=== PATIENT | female | born 1955 | race Caucasian/White ===

== ENCOUNTER → 2023-08-13 10:00 | Outpatient (REF) | payer BC, SELFPAY | LOC: CLAB 10:00 | PROVIDERS: ATTENDING PHYSICIAN Surgery | DX: N63.20 Unspecified lump in the left breast, unspecified quadrant (principal) | CPT/HCPCS: 88307; 88312 ==

== ENCOUNTER → 2023-09-06 13:24 | Outpatient (REF) | payer BC, SELFPAY ==
[2023-09-06 14:10] LABS: % Basophils 0.3 % (0-2); % Eosinophils 0.9 % (0-6); % Immature Granulocytes 0.3 % (0-0.5); % Lymphocytes 19.5 % (20.5-51.1); % Monocytes 10.5 % (1.7-9.3); % Neutrophils 68.5 % (42.2-75.2); Absolute Eosinophils 0.1 10^3/uL (0-0.7); Absolute Lymphocytes 2.3 10^3/uL (1.2-3.4); Absolute Monocytes 1.3 10^3/uL (0.1-0.6); Absolute Neutrophils 8.2 10^3/uL (1.4-6.5); Hematocrit 41.1 % (37.0-47.0); Hemoglobin 14.1 g/dL (12.0-16.0); Mean Corp Hgb Conc. 34.3 g/dL (33.0-37.0); Mean Corpuscular Hgb 32.6 pg (27.0-31.0); Mean Corpuscular Volume 94.9 fL (81.0-99.0); Mean Platelet Volume 9.7 fL (7.4-10.4); Nucleated Red Blood Cells % 0 %; Platelet Count 212 10^3/uL (130-400); Red Blood Cell Count 4.33 10^6/uL (4.20-5.40); Red Cell Dist. Width 12.4 % (11.5-14.5)
[2023-09-06 14:24] LABS: ALT (SGPT) 26 U/L (0-35); AST (SGOT) 22 U/L (14-36); Alkaline Phosphatase 90 U/L (38-126); Blood Urea Nitrogen 19 mg/dl (7-17); Calcium 8.8 mg/dl (8.4-10.2); Carbon Dioxide 29 mmol/L (22-30); Chloride 101 mmol/L (98-107); Glucose 126 mg/dl (70-99); Potassium 3.8 mmol/L (3.5-5.1); Sodium 135 mmol/L (135-145); Total Bilirubin 0.7 mg/dl (0.2-1.3); Total Protein 6.9 g/dl (6.3-8.2); eGFR > 60.00
== END ==
LOC: REG 13:24
PROVIDERS: ATTENDING PHYSICIAN Nurse Practitioner Primary Care; FAMILY PHYSICIAN Nurse Practitioner Family
DX: Z79.899 Other long term (current) drug therapy (principal)
CPT/HCPCS: 36415; 80053; 85025

== ENCOUNTER → 2023-09-10 09:15 | Outpatient (REF) | payer BC, SELFPAY | LOC: HWRAD 09:15 | PROVIDERS: ATTENDING PHYSICIAN Nurse Practitioner Family | DX: R05.9 Cough, unspecified (principal) | CPT/HCPCS: 71046 ==

== ENCOUNTER → 2023-11-05 08:07 | Outpatient (REF) | payer BC, SELFPAY ==
[2023-11-05 12:34] LABS: Glucose 124 mg/dl (70-99)
[2023-11-05 12:35] LABS: Blood Urea Nitrogen 17 mg/dl (7-17); Calcium 9.4 mg/dl (8.4-10.2); Carbon Dioxide 27 mmol/L (22-30); Chloride 104 mmol/L (98-107); Potassium 4.6 mmol/L (3.5-5.1); Sodium 136 mmol/L (135-145); eGFR > 60.00
== END ==
LOC: HWLAB 08:07
PROVIDERS: ATTENDING PHYSICIAN Internal Medicine Cardiovascular Disease; FAMILY PHYSICIAN Nurse Practitioner Family
DX: I10 Essential (primary) hypertension (principal); I35.1 Nonrheumatic aortic (valve) insufficiency
CPT/HCPCS: 36415; 80048

== ENCOUNTER → 2023-11-13 12:39 | Outpatient (REF) | payer BC, SELFPAY | LOC: CLAB 12:39 | PROVIDERS: ATTENDING PHYSICIAN Dermatology | DX: D48.5 Neoplasm of uncertain behavior of skin (principal) | CPT/HCPCS: 88305 ==

== ENCOUNTER → 2024-02-12 07:04 | Outpatient (REF) | payer BC, SELFPAY ==
[2024-02-12 08:24] LABS: % Basophils 0.5 % (0-2); % Eosinophils 1.7 % (0-6); % Immature Granulocytes 0.5 % (0-0.5); % Lymphocytes 25.1 % (20.5-51.1); % Monocytes 6.8 % (1.7-9.3); % Neutrophils 65.4 % (42.2-75.2); Absolute Eosinophils 0.1 10^3/uL (0-0.7); Absolute Lymphocytes 1.5 10^3/uL (1.2-3.4); Absolute Monocytes 0.4 10^3/uL (0.1-0.6); Absolute Neutrophils 3.9 10^3/uL (1.4-6.5); Hemoglobin 13.5 g/dL (12.0-16.0); Mean Corp Hgb Conc. 34.6 g/dL (33.0-37.0); Mean Corpuscular Hgb 32.4 pg (27.0-31.0); Mean Corpuscular Volume 93.5 fL (81.0-99.0); Nucleated Red Blood Cells % 0 %; Platelet Count 227 10^3/uL (130-400); Red Blood Cell Count 4.17 10^6/uL (4.20-5.40); Red Cell Dist. Width 12.2 % (11.5-14.5)
[2024-02-12 08:43] LABS: ALT (SGPT) 29 U/L (0-35); AST (SGOT) 27 U/L (14-36); Albumin 4.3 g/dl (3.5-5.0); Alkaline Phosphatase 86 U/L (38-126); Blood Urea Nitrogen 17 mg/dl (7-17); Calcium 9.3 mg/dl (8.4-10.2); Carbon Dioxide 27 mmol/L (22-30); Chloride 104 mmol/L (98-107); Glucose 121 mg/dl (70-99); HDL Cholesterol 37 mg/dl; LDL Cholesterol, Calculated 165 mg/dl; Potassium 4.5 mmol/L (3.5-5.1); Sodium 138 mmol/L (135-145); Total Bilirubin 0.6 mg/dl (0.2-1.3); Total Cholesterol 240 mg/dl (50-199); Total Protein 6.8 g/dl (6.3-8.2); Triglyceride 191 mg/dl (10-149); Very Low Density Lipoprotein 38 mg/dl (0-30); eGFR > 60.00
[2024-02-12 09:00] LABS: Glycohemoglobin (HgbA1c) 6.2 % (4.0-5.6)
[2024-02-12 09:02] LABS: Vitamin D, 25-OH*** 30.6 ng/mL (30-80)
[2024-02-12 09:16] LABS: TSH Reflex To Free T4 1.54 uIU/ml (0.47-4.68)
[2024-02-12 09:55] LABS: Vitamin B12 275 pg/ml (239-931)
== END ==
LOC: REG 07:04
PROVIDERS: ATTENDING PHYSICIAN Nurse Practitioner Family
DX: E53.8 Deficiency of other specified B group vitamins (principal); I10 Essential (primary) hypertension; E55.9 Vitamin D deficiency, unspecified; R73.03 Prediabetes; E78.5 Hyperlipidemia, unspecified; Z00.00 Encounter for general adult medical examination without abnormal findings
CPT/HCPCS: 36415; 80053; 80061; 82306; 82607; 83036; 84443; 85025

== ENCOUNTER → 2024-04-10 14:39 | Outpatient (REF) | payer BC, SELFPAY | LOC: RAD 14:39 | PROVIDERS: ATTENDING PHYSICIAN Nurse Practitioner Family | DX: M79.604 Pain in right leg (principal); M79.605 Pain in left leg | CPT/HCPCS: 93922; 93925 ==

== ENCOUNTER → 2024-05-19 07:00 | Outpatient (REF) | payer BC, SELFPAY | LOC: WDC 07:00 | PROVIDERS: ATTENDING PHYSICIAN Nurse Practitioner Family | DX: Z12.31 Encounter for screening mammogram for malignant neoplasm of breast (principal) | CPT/HCPCS: 77063; 77067 ==

== ENCOUNTER → 2024-05-25 07:32 | Outpatient (REF) | payer BC, SELFPAY | LOC: RAD 07:32 | PROVIDERS: ATTENDING PHYSICIAN Nurse Practitioner Family | DX: M85.80 Other specified disorders of bone density and structure, unspecified site (principal) | CPT/HCPCS: 77080 ==

== ENCOUNTER → 2024-05-27 09:10 | Outpatient (REF) | payer BC, SELFPAY | LOC: WDC 09:10 | PROVIDERS: ATTENDING PHYSICIAN Nurse Practitioner Family | DX: R92.8 Other abnormal and inconclusive findings on diagnostic imaging of breast (principal) | CPT/HCPCS: 76642 ==

== ENCOUNTER → 2024-06-29 06:27 | Outpatient (REF) | payer BC, SELFPAY ==
[2024-06-29 09:36] LABS: % Basophils 0.6 % (0-2); % Immature Granulocytes 0.6 % (0-0.5); % Lymphocytes 21.6 % (20.5-51.1); % Neutrophils 67.2 % (42.2-75.2); Absolute Eosinophils 0.1 10^3/uL (0-0.7); Absolute Lymphocytes 1.4 10^3/uL (1.2-3.4); Absolute Monocytes 0.5 10^3/uL (0.1-0.6); Absolute Neutrophils 4.5 10^3/uL (1.4-6.5); Hematocrit 41.8 % (37.0-47.0); Hemoglobin 13.9 g/dL (12.0-16.0); Mean Corp Hgb Conc. 33.3 g/dL (33.0-37.0); Mean Corpuscular Hgb 32.6 pg (27.0-31.0); Mean Corpuscular Volume 98.1 fL (81.0-99.0); Mean Platelet Volume 10.2 fL (7.4-10.4); Nucleated Red Blood Cells % 0 %; Platelet Count 208 10^3/uL (130-400); Red Blood Cell Count 4.26 10^6/uL (4.20-5.40); Red Cell Dist. Width 12.2 % (11.5-14.5); White Blood Cell Count 6.7 10^3/uL (4.8-10.8)
[2024-06-29 09:53] LABS: ALT (SGPT) 29 U/L (0-35); AST (SGOT) 26 U/L (14-36); Albumin 4.1 g/dl (3.5-5.0); Alkaline Phosphatase 82 U/L (38-126); Blood Urea Nitrogen 15 mg/dl (7-17); Calcium 8.8 mg/dl (8.4-10.2); Carbon Dioxide 28 mmol/L (22-30); Chloride 104 mmol/L (98-107); Glucose 135 mg/dl (70-99); Potassium 4.1 mmol/L (3.5-5.1); Sodium 140 mmol/L (135-145); Total Bilirubin 0.3 mg/dl (0.2-1.3); Total Protein 6.6 g/dl (6.3-8.2); eGFR > 60.00
[2024-06-29 10:21] LABS: TSH Reflex To Free T4 1.77 uIU/ml (0.47-4.68)
[2024-06-29 10:31] LABS: Vitamin D, 25-OH*** 16.5 ng/mL (30-80)
[2024-06-29 10:40] LABS: Vitamin B12 286 pg/ml (239-931)
[2024-06-29 11:08] LABS: Glycohemoglobin (HgbA1c) 6.1 % (4.0-5.6)
== END ==
LOC: HWLAB 06:27
PROVIDERS: ATTENDING PHYSICIAN Nurse Practitioner Family
DX: E53.8 Deficiency of other specified B group vitamins (principal); E55.9 Vitamin D deficiency, unspecified; I10 Essential (primary) hypertension; R73.03 Prediabetes
CPT/HCPCS: 36415; 80053; 82306; 82607; 83036; 84443; 85025

== ENCOUNTER → 2024-08-10 11:23 | Outpatient (REF) | payer BC, SELFPAY ==
[2024-08-10 15:27] LABS: Lipase 29 U/L (23-300)
[2024-08-10 16:14] LABS: Vitamin B12 413 pg/ml (239-931)
== END ==
LOC: HWLAB 11:23
PROVIDERS: ATTENDING PHYSICIAN Specialist; FAMILY PHYSICIAN Nurse Practitioner Family
DX: R43.2 Parageusia (principal); K21.9 Gastro-esophageal reflux disease without esophagitis; R09.82 Postnasal drip
CPT/HCPCS: 36415; 82607; 83516; 83690; 83735; 84630; 86340

== ENCOUNTER → 2024-08-12 09:00 | Outpatient (REF) | payer BC, SELFPAY | LOC: CLAB 09:00 | PROVIDERS: Pathology Anatomic Pathology & Clinical Pathology; ATTENDING PHYSICIAN Nurse Practitioner Primary Care; FAMILY PHYSICIAN Nurse Practitioner Family | DX: L30.8 Other specified dermatitis (principal) | CPT/HCPCS: 87070; 87205; 88305 ==

== ENCOUNTER → 2024-09-01 07:26 | Outpatient (REF) | payer BC, SELFPAY | LOC: WDC 07:26 | PROVIDERS: ATTENDING PHYSICIAN Nurse Practitioner Family | DX: R92.8 Other abnormal and inconclusive findings on diagnostic imaging of breast (principal) | CPT/HCPCS: 76642 ==

== ENCOUNTER → 2024-09-28 08:12 | Outpatient (REF) | payer BC, SELFPAY | LOC: RCS 08:12 | PROVIDERS: ATTENDING PHYSICIAN Internal Medicine Cardiovascular Disease; FAMILY PHYSICIAN Nurse Practitioner Family | DX: I10 Essential (primary) hypertension (principal); I87.2 Venous insufficiency (chronic) (peripheral) | CPT/HCPCS: 93017; 93350 ==

== ENCOUNTER → 2024-11-27 15:15 | Outpatient (REF) | payer BC, SELFPAY ==
[2024-11-27 17:09] LABS: Vitamin B12 385 pg/ml (239-931)
== END ==
LOC: REG 15:15
PROVIDERS: ATTENDING PHYSICIAN Specialist; FAMILY PHYSICIAN Nurse Practitioner Family
DX: E53.8 Deficiency of other specified B group vitamins (principal)
CPT/HCPCS: 36415; 82607

== ENCOUNTER → 2024-12-19 09:50 | Outpatient (REF) | payer BC, SELFPAY ==
[2024-12-19 12:20] LABS: ALT (SGPT) 23 U/L (0-35); AST (SGOT) 21 U/L (14-36); Albumin 4.2 g/dl (3.5-5.0); Alkaline Phosphatase 68 U/L (38-126); Blood Urea Nitrogen 14 mg/dl (7-17); Calcium 9.1 mg/dl (8.4-10.2); Carbon Dioxide 28 mmol/L (22-30); Chloride 106 mmol/L (98-107); Glucose 131 mg/dl (70-99); Sodium 141 mmol/L (135-145); Total Bilirubin 0.6 mg/dl (0.2-1.3); Total Protein 6.7 g/dl (6.3-8.2); eGFR > 60.00
== END ==
LOC: REG 09:50
PROVIDERS: ATTENDING PHYSICIAN Nurse Practitioner Family
DX: I10 Essential (primary) hypertension (principal); R73.03 Prediabetes; E78.2 Mixed hyperlipidemia; K76.0 Fatty (change of) liver, not elsewhere classified; Z68.30 Body mass index [BMI] 30.0-30.9, adult; G50.0 Trigeminal neuralgia; K29.50 Unspecified chronic gastritis without bleeding
CPT/HCPCS: 36415; 80053

== ENCOUNTER → 2025-01-05 07:13 | Outpatient (REF) | payer BC, SELFPAY | LOC: RAD 07:13 | PROVIDERS: ATTENDING PHYSICIAN Specialist; FAMILY PHYSICIAN Nurse Practitioner Family | DX: R93.5 Abnormal findings on diagnostic imaging of other abdominal regions, including retroperitoneum (principal) | CPT/HCPCS: 74177; Q9967 ==

== ENCOUNTER → 2025-01-11 16:26 | Outpatient (REF) | payer BC, SELFPAY | LOC: CLAB 16:26 | PROVIDERS: ATTENDING PHYSICIAN Nurse Practitioner Primary Care; FAMILY PHYSICIAN Nurse Practitioner Family | DX: L30.8 Other specified dermatitis (principal) | CPT/HCPCS: 87070; 87075; 87205; 87255 ==

== ENCOUNTER 2025-02-01 21:22 | Emergency (ER) | payer BC, SELFPAY ==
[2025-02-01 21:35] VITALS: BP 172/79
[2025-02-02 00:06] VITALS: BP 186/73
--- NOTE | 2025-02-02 00:10 | ED.GENMED ---
History of Present Illness
General
Chief Complaint: Vaginal Bleeding
Source: patient
Time Seen by Provider: 02/02/25 00:08
History of Present Illness
History of Present Illness:
Note:
CHIEF COMPLAINT(S)
Vaginal bleeding since 7 PM this evening.
HISTORY OF PRESENT ILLNESS
The patient is a 69-year-old female with a history of uterine cancer diagnosed in 2012, treated with surgery and radiation, and has been in remission. She presents with vaginal bleeding that began at 7 PM today. The patient notes that she has been
using approximately one pad per hour since the bleeding started. There is no associated abdominal pain, fever, chills, nausea, or vomiting. The patient mentioned that a computed tomography (CT) scan was done previously for another concern, and there
is a plan to perform a CT scan soon to evaluate the current condition. There is consideration for an ultrasound depending on the CT findings, especially given her cancer history.
PHYSICAL EXAM
General: Alert, no acute distress.
Skin: Warm, dry.
Head: Normocephalic, atraumatic.
Neck: Supple, trachea midline.
Eye Ears, nose, mouth and throat: Oral mucosa moist.
Cardiovascular: Normal peripheral perfusion, No edema.
Respiratory: Respirations are non-labored.
Gastrointestinal: Abdomen nondistended.
Back: Normal range of motion, Normal alignment.
Musculoskeletal: Normal range of motion, normal strength.
Neurological: Alert and oriented to person, place, time, and situation, No focal neurological deficit observed.
Psychiatric: Cooperative, appropriate mood & affect.
PLAN
Perform a CT scan to evaluate the cause of the vaginal bleeding, considering the patient�s history of uterine cancer. An ultrasound may also be performed depending on the CT scan findings.
DIFFERENTIAL DIAGNOSIS
The Differential Diagnosis includes, in no particular order and is not limited to:
1. Recurrence of uterine cancer- Ct scan shows no evidence
2. Atrophic vaginitis
3. Endometrial atrophy
4. Endometrial hyperplasia
5. Coagulopathy
6. Hormonal imbalance
7. Cervical polyps
8. Hormone replacement therapy effects
9. Endometrial cancer
10. Uterine fibroids
Disposition:
SUMMARY OF ENCOUNTER
The patient is a 69-year-old female who presented to the emergency department with vaginal bleeding that began this afternoon and has since diminished. A computed tomography (CT) scan of the abdomen and pelvis with IV contrast was conducted,
revealing no acute intra-abdominal pathology, bowel obstruction, or inflammation. The appendix appears normal, and there is no hydronephrosis, nephrolithiasis, free air, or free fluid. Hemoglobin and hematocrit levels are normal. The patient
declined an ultrasound and pelvic examination at this time.
PLAN
The patient will schedule a follow-up appointment with her boring machine operator vertical, [facility]
INDEPENDENT REVIEW OF LABS AND INTERPRETATION OF TESTS
My independent review of the CT scan of the abdomen and pelvis shows no acute intra-abdominal pathology, no bowel obstruction or inflammation, normal appendix, and no hydronephrosis or nephrolithiasis. There is also no presence of free air or free
fluid.
PATIENT EDUCATION AND COUNSELING
The patient was counseled on the importance of following up with her boring machine operator vertical and was provided with return instructions should any symptoms worsen or new symptoms develop.
FOLLOW-UP INSTRUCTIONS
The patient was advised to make an appointment with her boring machine operator vertical, Umair shah, for further evaluation and management.
MEDICAL DECISION MAKING
Chronic conditions affecting care [history of uterine cancer, previously treated and in remission]
-Complexity of Data Reviewed:
Differential Diagnosis includes recurrence of uterine cancer, atrophic vaginitis, endometrial atrophy, endometrial hyperplasia, coagulopathy, hormonal imbalance, cervical polyps, hormone replacement therapy effects, endometrial cancer, and uterine
fibroids.
-Data:
Category 1
My independent interpretation of the CT scan of the abdomen and pelvis indicates no acute intra-abdominal pathology.
-Risk:
Consideration of Admission/Observation: Escalation of care including admission/observation was considered given the complexity and risk of the patients presenting complaint and exam findings. However, ultimately I feel the patient is safe for
outpatient management with close follow-up. Reasoning: Work-up is reassuring, does not reveal any acute life/organ-threatening processes, patients symptoms are well controlled upon reevaluation, reexamination is reassuring, and the patient is
agreeable with discharge and reliable for follow-up.
DIAGNOSIS
Vaginal bleeding (ICD-10: N93.9)
Past History
Past History
ED Past Medical History: HTN, Hypercholesterolemia and Other (Gastritis, Small bowel edema)
ED Past Surgical History: Gynecological (Total Hysterectomy)
Social History
Tobacco: Non-smoker
Alcohol: None
Personal:
Living: with family
Employment: Employed
Phy Exam
Physical Exam
Physical Exam:
.
Course
Orders/Labs/Results
Orders:
Orders
02/01/25 22:02
Complete Blood Count/With Diff Urgent
02/02/25 00:09
CT Abd/pelvis W Iv Cont Urgent
Comment:
Reason For Exam: uterine ca with incr vag bleeding
02/02/25 00:39
ABO2 Urgent
LIANAI Wristband Number:
Associate notified that ABO2 has been ordered: [id number]
Date: 02/02/25
Time: 00:45
Top Bottom Attaching Machine Operator ID: [id number]
Basic Metabolic Panel Urgent
Comment: NO K
02/02/25 00:59
Type+Screen Urgent
BBK Wristband Number:
Abnormal Lab Results
02/02/25
00:39
MCH 32.6 H pg
(27.0-31.0)
Abs Immat Gran (auto) 0.1 H 10^3/uL
(0-0.05)
Immature Gran % 0.6 H %
(0-0.5)
BUN 18 H mg/dl
(7-17)
Glucose 123 H mg/dl
(70-99)
07/22/25 00:39
02/02/25 00:39
Vital Signs
Initial and Last Documented VS:
Initial Vital Signs
Temp Pulse Resp BP Pulse Ox
98.3 F 84 18 172/79 97
02/01/25 21:35 02/01/25 21:35 02/01/25 21:35 02/01/25 21:35 02/01/25 21:35
Last Documented Vital Signs
Temp Pulse Resp BP Pulse Ox
98.3 F 84 20 186/73 98
02/01/25 21:35 02/01/25 21:35 02/02/25 00:19 02/02/25 00:06 02/02/25 00:19
*Radiology
Radiology exam reviewed: radiology read reviewed
*Pulse Oximetry
SaO2: 97
Oxygen Mode of Delivery: Room air
Patient hypoxic: no
*Critical Care Note
Total Time (30-74mins, 75-104mins- exclusive of procedures): Not Applicable
Update Note
Update Note:
NAME: CHAPARRO PELAYO
DATE OF EXAM: 02/02/2025
Patient No: [id number]
Physician: GOMEZ^Alondra
Date of : 1955
Past Medical History (entered by Technologist):
Reason For Exam (entered by Technologist):
Other Notes (entered by Technologist): Patient arrives c/o worsening vaginal bleeding. Reports hx uterine CA and hysterectomy. Denies thinners
Additional Information (per [facility]iologist):
Comparison December 11, 2019
CT abdomen and pelvis with IV contrast
IMPRESSION:
No acute intra-abdominal pathology. No bowel obstruction or inflammation. Appendix is normal. No hydronephrosis or nephrolithiasis. No free air or free fluid.
Mild hepatic steatosis. DDD and DJD.
The results were faxed/finalized only at 0245 ET. If you would like to discuss this case directly please call [phone] (extension [phone]). If you can't reach me at this number, do not leave a voicemail. Please call [phone] ext [phone] and ask for
the next available Radiologist.
Angel Owens M.D.
This report has been electronically signed and verified by the Radiologist whose name is printed above.
Discussed lab work and CT scan findings with the patient. At this time she wants no further testing. She does not want a pelvic exam. She prefers to follow-up with Dr. Duckworth's group. We did discuss return to ER instructions. I feel that
she has a good understanding of send instructions and will be discharged in improved condition with close follow-up.
ED Attending Note
-
Portions of this chart may have been created with voice recognition software.� Occasional wrong word or��sound alike� substitutions may have occurred due to the inherent limitations of voice recognition software.
Discharge Plan
Departure
Patient Disposition: Home (Routine Discharge)
Date of Disposition: 02/02/25
Time of Disposition: 03:11
Patient with high blood pressure during this ER visit?: Yes
Discharge Problem:
Abnormal vaginal bleeding
Instructions: Heavy periods - ED discharge instructions, BLOOD PRESSURE
Prescriptions:
No Action
fluconazole [Diflucan] 150 mg tablet
150 mg PO ONCE Qty: 1 0RF
Referrals:
Juan A Leyva CRNP [Family Provider, Family Practice]
Umair Duckworth MD [Active, Gynecology] - Next open appointment
Stand Alone Forms: Return to Work
Activity Restrictions/Additional Instructions:
Thank You for choosing [facility].
It was a pleasure meeting you and taking part in your care. We hope for your continued healing and wellness.
Please read discharge instructions in their entirety. However, they are for general education and may not describe your exact diagnosis at discharge. Information on your ER visit and medical conditions were discussed with you along with appropriate
follow up information...
If indicated, please take your medications as instructed and indicated on discharge paperwork.
Please schedule a follow up appointment as directed. Call to schedule an appointment
Please return to the emergency department with ANY change in, persisting, or worsening of symptoms. If any of your symptoms do not improve, or persist, or become more severe within 6-12 hours, please return to the emergency department for further
care.
Please return to the emergency department if you develop a headache, neck pain/stiffness, fever greater than 100.4F, chest pain, shortness of breath, persistent nausea, vomiting, slurred speech, difficulty walking, numbness/tingling, weakness, signs
of infection or any other symptoms that are worrisome to you.
If you have any questions or concerns please do not hesitate to call the Hospital at or E-mail me directly at [email or web address]
Interventions
Interventions:
*Risk Screen - Suicide Last Done: 02/01/25 21:35
*General Assessment Last Done: 02/02/25 00:15
*Neglect/Abuse Screening Last Done: 02/01/25 21:35
*ED- Fall Risk Assessment Last Done: 02/02/25 00:15
*ED COVID-19 Vaccine History Last Done: 02/02/25 00:15
ED-Female Genitourinary Assessment Last Done: 02/02/25 00:43
Discharge Date and Time
Print Language: UKRAINIAN
[2025-02-02 00:18] VITALS: BMI 35.1
[2025-02-02 00:47] LABS: Hematocrit 40.5 % (37.0-47.0); Hemoglobin 14.2 g/dL (12.0-16.0); Mean Corp Hgb Conc. 35.1 g/dL (33.0-37.0); Mean Corpuscular Volume 92.9 fL (81.0-99.0); Nucleated Red Blood Cells % 0 %; Platelet Count 196 10^3/uL (130-400); Red Cell Dist. Width 12.2 % (11.5-14.5)
[2025-02-02 02:21] LABS: Blood Urea Nitrogen 18 mg/dl (7-17); Calcium 9.6 mg/dl (8.4-10.2); Carbon Dioxide 24 mmol/L (22-30); Chloride 107 mmol/L (98-107); Estimated Creatinine Clearance 94 ml/min; Glucose 123 mg/dl (70-99); Sodium 138 mmol/L (135-145); eGFR > 60.00
--- NOTE | 2025-02-02 02:26 | DOWNTIME ---
There was a [employer] Client Console Operator Downtime on 02/02/2025 from 0100 to 02/02/2025 at 0220. Downtime documentation of patient's care, including medication administrations, has been reconciled in the electronic record per guidelines. Refer to the
patient's paper chart under the miscellaneous tab to see printed paper medication records and downtime forms.
[2025-02-02 03:08] VITALS: BP 169/79
[2025-02-02 03:12] VITALS: BP 169/79
== END 2025-02-02 03:22 | disposition home or self-care (01) ==
LOC: EMR 21:22
PROVIDERS: Emergency Medicine; EMERGENCY PHYSICIAN Student in an Organized Health Care Education/Training Program; FAMILY PHYSICIAN Nurse Practitioner Family
DX: N93.9 Abnormal uterine and vaginal bleeding, unspecified (principal); I10 Essential (primary) hypertension; E78.00 Pure hypercholesterolemia, unspecified; Z85.42 Personal history of malignant neoplasm of other parts of uterus; Z92.3 Personal history of irradiation; Z87.19 Personal history of other diseases of the digestive system; Z88.2 Allergy status to sulfonamides; Z88.8 Allergy status to other drugs, medicaments and biological substances; Z91.040 Latex allergy status
CPT/HCPCS: 99284; 80048; 85025; 86850; 86900; 86901

== ENCOUNTER → 2025-02-09 15:01 | Outpatient (REF) | payer BC, SELFPAY ==
[2025-02-13 05:46] LABS: HPV, High Risk Not Detected; HPV, High Risk Source Cervical
== END ==
LOC: CPAP 15:01
PROVIDERS: ATTENDING PHYSICIAN Nurse Practitioner Family
DX: Z01.419 Encounter for gynecological examination (general) (routine) without abnormal findings (principal)
CPT/HCPCS: 87624

== ENCOUNTER → 2025-02-15 08:12 | Outpatient (REF) | payer BC, SELFPAY ==
[2025-02-15 09:47] LABS: Hematocrit 39.9 % (37.0-47.0); Hemoglobin 13.3 g/dL (12.0-16.0); Mean Corp Hgb Conc. 33.3 g/dL (33.0-37.0); Mean Corpuscular Volume 96.6 fL (81.0-99.0); Nucleated Red Blood Cells % 0 %; Platelet Count 218 10^3/uL (130-400); Red Cell Dist. Width 12.2 % (11.5-14.5)
[2025-02-15 10:04] LABS: ALT (SGPT) 29 U/L (0-35); AST (SGOT) 22 U/L (14-36); Albumin 4.2 g/dl (3.5-5.0); Alkaline Phosphatase 71 U/L (38-126); Blood Urea Nitrogen 12 mg/dl (7-17); Calcium 9.0 mg/dl (8.4-10.2); Carbon Dioxide 28 mmol/L (22-30); Chloride 105 mmol/L (98-107); Glucose 128 mg/dl (70-99); HDL Cholesterol 34 mg/dl; LDL Cholesterol, Calculated 61 mg/dl; Potassium 4.2 mmol/L (3.5-5.1); Sodium 140 mmol/L (135-145); Total Protein 6.8 g/dl (6.3-8.2); Very Low Density Lipoprotein 37 mg/dl (0-30); eGFR > 60.00
[2025-02-15 10:06] LABS: Glycohemoglobin (HgbA1c) 6.2 % (4.0-5.6)
[2025-02-15 11:12] LABS: Vitamin B12 902 pg/ml (239-931)
== END ==
LOC: HWLAB 08:12
PROVIDERS: ATTENDING PHYSICIAN Specialist; FAMILY PHYSICIAN Nurse Practitioner Family
DX: E53.8 Deficiency of other specified B group vitamins (principal); I10 Essential (primary) hypertension; R73.03 Prediabetes; E78.2 Mixed hyperlipidemia; K76.0 Fatty (change of) liver, not elsewhere classified; Z68.30 Body mass index [BMI] 30.0-30.9, adult; G50.1 Atypical facial pain; K29.50 Unspecified chronic gastritis without bleeding; K63.9 Disease of intestine, unspecified; E55.9 Vitamin D deficiency, unspecified; M85.80 Other specified disorders of bone density and structure, unspecified site; Z12.39 Encounter for other screening for malignant neoplasm of breast; Z12.11 Encounter for screening for malignant neoplasm of colon; M79.604 Pain in right leg; M79.605 Pain in left leg; R43.8 Other disturbances of smell and taste
CPT/HCPCS: 36415; 80053; 80061; 82607; 83036; 84443; 85025

== ENCOUNTER → 2025-05-20 07:17 | Outpatient (REF) | payer BC, SELFPAY | LOC: WDC 07:17 | PROVIDERS: ATTENDING PHYSICIAN Nurse Practitioner Family | DX: Z12.31 Encounter for screening mammogram for malignant neoplasm of breast (principal) | CPT/HCPCS: 77063; 77067 ==

== ENCOUNTER → 2025-05-21 10:17 | Outpatient (REF) | payer BC, SELFPAY | LOC: RAD 10:17 | PROVIDERS: ATTENDING PHYSICIAN Nurse Practitioner Family | DX: R60.0 Localized edema (principal) | CPT/HCPCS: 93971 ==